=== PATIENT | male | born 1995 | race Caucasian/White ===

== ENCOUNTER 2020-07-09 11:04 | Emergency (ER) | payer OTHER ==
[~2020-07-09] VITALS: Ht 165.1 cm; Wt 68.7 kg
[2020-07-09 11:08] VITALS: BP 100/74
[2020-07-09] MEDS ORDERED: CYCL-1 PO (12:54)
== END 2020-07-09 13:12 | disposition home or self-care (01) ==
LOC: ER 11:05
DX: S19.80XA Other specified injuries of unspecified part of neck, initial encounter (principal); M54.2 Cervicalgia; M62.838 Other muscle spasm; V89.2XXA Person injured in unspecified motor-vehicle accident, traffic, initial encounter; Y93.89 Activity, other specified; Y92.89 Other specified places as the place of occurrence of the external cause; Y99.8 Other external cause status
CPT/HCPCS: 99283